=== PATIENT | male | born 1970 | race Native Hawaiian/Other Pacific Islander ===

== ENCOUNTER 2018-05-21 06:54 | Emergency (ER) | payer MEDICARE, MEDICAID ==
--- NOTE | 2018-05-21 07:30 | EDM.PDOC ---
ED HPI GENERAL MEDICAL PROBLEM - General Chief Complaint: General Stated Complaint: WEAKNESS Time Seen by Provider: 05/21/18 07:00 Source of Information: Reports: Patient, EMS History Limitations: Reports: No Limitations - History of Present Illness INITIAL COMMENTS - FREE TEXT/NARRATIVE: 48 years olf hilda m, HIV pos, came to there ed this am due to numbness of his lower face and "body shaking". Pt is seen on a regular basis at the infections disease clinic at [facility]. His last CD4 count was 500 (stable), Pt is compliant with his meds. No trauma. Pt walks daily and drinks a lot of water. As the pt was arriving by EMS, he symptoms were improving. No N/V/D. No Dizziness, last MRI 5 years ago, NEG No other acute medical issues. BP 147/79 RR 18 Pulse ox 99% on RA temp 36.8 Pulse 98 bpm Onset Date: 05/21/18 Onset Time: 08:00 Duration: Hour(s):, Improving Location: Reports: Face Quality: Reports: Other (numb) Severity: Mild Improves with: Reports: None Worsens with: Reports: None Associated Symptoms: Reports: Other (Headache off/on, not new) Treatments [employer]OR: Reports: Acetaminophen - Related Data Allergies Allergy/AdvReac Type Severity Reaction Status Date / Time nut - unspecified Allergy Unknown Other Verified 05/21/18 07:08 Home Meds: Home Meds Cholecalciferol (Vitamin D3) [Vitamin D3] 2,000 unit PO DAILY 05/21/18 [History] Emtricitabine/Tenofovir [Truvada 200 mg-300 mg Tablet] 1 tab PO DAILY 05/21/18 [ History] Loratadine 10 mg PO DAILY 05/21/18 [History] Metoprolol Succinate 12.5 mg PO DAILY 05/21/18 [History] Nevirapine 200 mg PO BID 05/21/18 [History] Omeprazole 40 mg PO ACBREAKFAST 05/21/18 [History] levETIRAcetam [Keppra] 500 mg PO TID 05/21/18 [History] ED ROS GENERAL - Review of Systems Review Of Systems: See Below Constitutional: Reports: No Symptoms HEENT: Reports: No Symptoms Respiratory: Reports: No Symptoms Cardiovascular: Reports: No Symptoms Endocrine: Reports: No Symptoms GI/Abdominal: Reports: No Symptoms : Reports: No Symptoms Musculoskeletal: Reports: No Symptoms Skin: Reports: No Symptoms Neurological: Reports: Paresthesia (lower cheek, reseolving), Tremors (resolving ) Psychiatric: Reports: No Symptoms Hematologic/Lymphatic: Reports: No Symptoms Immunologic: Reports: No Symptoms ED EXAM, GENERAL - Physical Exam Exam: See Below Exam Limited By: No Limitations General Appearance: Alert, WD/WN, Mild Distress Eye Exam: Bilateral Eye: Normal Inspection Nose: Normal Inspection, Normal Mucosa, No Blood Throat/Mouth: Normal Inspection, Normal Lips, Normal Gums, Normal Oropharynx, Normal Voice, No Airway Compromise Head: Atraumatic, Normocephalic Neck: Normal Inspection, Supple, Non-Tender, Full Range of Motion Respiratory/Chest: No Respiratory Distress, Rhonchi Cardiovascular: Normal Peripheral Pulses, Regular Rate, Rhythm, No Edema, No Gallop, No JVD, No Murmur, No Rub Peripheral Pulses: 1+: Brachial (R) GI/Abdominal: Normal Bowel Sounds, Soft, Non-Tender, No Organomegaly, No Distention, No Abnormal Bruit, No Mass, Pelvis Stable (Male) Exam: Deferred Rectal (Males) Exam: Deferred Back Exam: Normal Inspection, Full Range of Motion Extremities: Normal Inspection, Normal Range of Motion, Non-Tender, No Pedal Edema, Normal Capillary Refill Neurological: Alert, Oriented, CN II-XII Intact, Normal Cognition, Normal Gait, Normal Reflexes, No Motor/Sensory Deficits Psychiatric: Normal Affect, Normal Mood Skin Exam: Warm, Dry, Intact, Normal Color, No Rash Lymphatic: No Adenopathy Course - Vital Signs Text/Narrative:: 48 years olf w m, HIV pos, came to there ed this am due to numbness of his lower face and "body shaking". Pt is seen on a regular basis at the infections disease clinic at [facility]. His last CD4 count was 500 (stable), Pt is compliant with his meds. No trauma. Pt walks daily and drinks a lot of water. As the pt was arriving by EMS, he symptoms were improving. No N/V/D. No Dizziness, last MRI 5 years ago, NEG No other acute medical issues. BP 147/79 RR 18 Pulse ox 99% on RA temp 36.8 Pulse 98 bpm PE: WNWD W M in NAD, with facial numbness subsiding Imaging: Pt refused MRI Labs: CBC: WBC 4.2 BMP and LFT and UA were al Nl Impression: H/O HIV infection, numbness (subsiding) H/O Migraine H/A Meds: Motrin Reexam: Pt was in his usual state of health on D/C 9.05 am Consultation: Dr. Izaguirre, Infection Disease MD [place]: CD4 count 3as 500 2 months ago, home if neurological exam is nl. Plan: D/C with instructions Last Recorded V/S: Last Vital Signs Temp 36.8 C 05/21/18 09:30 Pulse 67 05/21/18 09:30 Resp 16 05/21/18 09:30 BP 147/87 H 05/21/18 09:30 Pulse Ox 100 05/21/18 09:30 - Orders/Labs/Meds Orders: Active Orders 24 hr Category Date Time Status UA W/MICROSCOPIC [URIN] Stat Lab 05/21/18 08:50 Ordered Labs: Laboratory Tests 05/21/18 05/21/18 05/21/18 Range/Units 08:06 08:06 08:06 WBC 4.2 L (4.5-12.0) X10-3/uL RBC 4.50 (4.30-5.75) x10(6)uL Hgb 14.9 (11.5-15.5) g/dL Hct 44.4 (30.0-51.3) % MCV 98.7 H (80-96) fL MCH 33.0 (27.7-33.6) pg MCHC 33.5 (32.2-35.4) g/dL RDW 14.9 (11.5-15.5) % Plt Count 342 (125-369) X10(3)uL MPV 6.9 L (7.4-10.4) fL Neut % (Auto) 60.9 (46-82) % Lymph % (Auto) 27.8 (13-37) % [place] % (Auto) 9.5 (4-12) % Eos % (Auto) 1 (1.0-5.0) % Baso % (Auto) 1 (0-2) % Neut # (Auto) 2.6 (1.6-8.3) # Lymph # (Auto) 1.2 (0.6-5.0) # [place] # (Auto) 0.4 (0.0-1.3) # Eos # (Auto) 0.0 (0.0-0.8) # Baso # (Auto) 0.0 (0.0-0.2) # PT 9.5 (8.7-11.1) INR 0.98 (0.89-1.13) Sodium 138 (135-145) mmol/L Potassium 4.0 (3.5-5.3) mmol/L Chloride 102 (100-110) mmol/L Carbon Dioxide 31 (21-32) mmol/L BUN 9 (7-18) mg/dL Creatinine 0.9 (0.70-1.30) mg/dL Est Cr Clr Drug Dosing 85.42 mL/min Estimated GFR (MDRD) > 60 (>60) BUN/Creatinine Ratio 10.0 (9-20) Glucose 101 (80-116) mg/dL Lactic Acid (0.4-2.2) mmol/L Calcium 8.2 L (8.6-10.2) mg/dL Total Bilirubin 0.2 (0.1-1.3) mg/dL Direct Bilirubin 0.07 L (0.10-0.20) mg/dL AST 19 (5-25) IU/L ALT 26 (12-36) U/L Alkaline Phosphatase 70 (56-112) IU/L Total Protein 7.6 (6.0-8.0) g/dL Albumin 3.8 (3.5-5.2) g/dL Amylase 39 (25-115) U/L Urine Color (YELLOW) Urine Appearance (CLEAR) Urine pH (5.0-6.5) Ur Specific [place] (1.010-1.025) Urine Protein (NEGATIVE) mg/dL Urine Glucose (UA) (NEGATIVE) mg/dL Urine Ketones (NEGATIVE) mg/dL Urine Occult Blood (NEGATIVE) Urine Nitrite (NEGATIVE) Urine Bilirubin (NEGATIVE) Urine Urobilinogen (NEGATIVE) mg/dL Ur Leukocyte Esterase (NEGATIVE) Urine RBC (0) Urine WBC (0) Ur Squamous Epith Cells (NS,R,O) Urine Bacteria (NS) 05/21/18 05/21/18 Range/Units 08:06 08:50 WBC (4.5-12.0) X10-3/uL RBC (4.30-5.75) x10(6)uL Hgb (11.5-15.5) g/dL Hct (30.0-51.3) % MCV (80-96) fL MCH (27.7-33.6) pg MCHC (32.2-35.4) g/dL RDW (11.5-15.5) % Plt Count (125-369) X10(3)uL MPV (7.4-10.4) fL Neut % (Auto) (46-82) % Lymph % (Auto) (13-37) % [place] % (Auto) (4-12) % Eos % (Auto) (1.0-5.0) % Baso % (Auto) (0-2) % Neut # (Auto) (1.6-8.3) # Lymph # (Auto) (0.6-5.0) # [place] # (Auto) (0.0-1.3) # Eos # (Auto) (0.0-0.8) # Baso # (Auto) (0.0-0.2) # PT (8.7-11.1) INR (0.89-1.13) Sodium (135-145) mmol/L Potassium (3.5-5.3) mmol/L Chloride (100-110) mmol/L Carbon Dioxide (21-32) mmol/L BUN (7-18) mg/dL Creatinine (0.70-1.30) mg/dL Est Cr Clr Drug Dosing mL/min Estimated GFR (MDRD) (>60) BUN/Creatinine Ratio (9-20) Glucose (80-116) mg/dL Lactic Acid 1.5 (0.4-2.2) mmol/L Calcium (8.6-10.2) mg/dL Total Bilirubin (0.1-1.3) mg/dL Direct Bilirubin (0.10-0.20) mg/dL AST (5-25) IU/L ALT (12-36) U/L Alkaline Phosphatase (56-112) IU/L Total Protein (6.0-8.0) g/dL Albumin (3.5-5.2) g/dL Amylase (25-115) U/L Urine Color Yellow (YELLOW) Urine Appearance Clear (CLEAR) Urine pH 7.0 H (5.0-6.5) Ur Specific [place] 1.010 (1.010-1.025) Urine Protein Negative (NEGATIVE) mg/dL Urine Glucose (UA) Normal (NEGATIVE) mg/dL Urine Ketones Negative (NEGATIVE) mg/dL Urine Occult Blood Negative (NEGATIVE) Urine Nitrite Negative (NEGATIVE) Urine Bilirubin Negative (NEGATIVE) Urine Urobilinogen 1 H (NEGATIVE) mg/dL Ur Leukocyte Esterase Negative (NEGATIVE) Urine RBC Not seen (0) Urine WBC 0-5 (0) Ur Squamous Epith Cells Few H (NS,R,O) Urine Bacteria Not seen (NS) Meds: Medications Discontinued Medications Generic Name Dose Route Start Last Admin Trade Name Freq PRN Reason Stop Dose Admin Ibuprofen 600 mg 05/21/18 07:26 05/21/18 07:33 Motrin PO 05/21/18 07:27 600 mg ONETIME ONE Administration Departure - Departure Time of Disposition: 09:21 Disposition: Home, Self-Care 01 Condition: Good Clinical Impression: Paresthesia, HIV (human immunodeficiency virus infection) - Discharge Information *PRESCRIPTION DRUG MONITORING PROGRAM REVIEWED*: Yes *COPY OF PRESCRIPTION DRUG MONITORING REPORT IN PATIENT SHARON: Yes Referrals: PCP,Not In Area [Primary Care Provider] - Forms: ED Department Discharge Additional Instructions: Please cont your current meds, please f/u with your PMD, come back if your symptoms get worse acutely - My Orders Last 24 Hours: My Active Orders 05/21/18 08:50 UA W/MICROSCOPIC [URIN] Stat - Assessment/Plan Last 24 Hours: My Active Orders 05/21/18 08:50 UA W/MICROSCOPIC [URIN] Stat
[2018-05-21] MEDS: Ibuprofen 600 MG Tab PO ONE (07:33)
[2018-05-21 09:31] VITALS: BP 147/87
--- NOTE | 2018-05-21 13:09 | CR ---
INDICATION: Cough and fever. CHEST: PA and lateral views of the chest were obtained 05/21/2018 - no comparisons. The heart is normal in size and shape. The mediastinum and bony thorax were essentially unremarkable. An active infiltrate or effusion was not identified. IMPRESSION: No active disease. MTDD
== END 2018-05-21 09:29 | disposition home or self-care (01) ==
LOC: FB.ED 06:54
DX: R20.2 Paresthesia of skin (principal); B20 Human immunodeficiency virus [HIV] disease; Z91.018 Allergy to other foods
CPT/HCPCS: 36415; 71046; 80048; 80076; 81001; 82150; 83605; 85025; 85610; 99284; A9270

== ENCOUNTER 2024-05-28 16:19 | Emergency (ER) | payer OTHER ==
[2024-05-28 16:49] VITALS: BP 148/100; PULSE 108
[2024-05-28 17:54] LABS: BASOPHILS PERCENT AUTO 0.5 % (0.3-3.8); EOSINOPHILS PERCENT AUTO 0.3 % (0.1-6.8); HEMOGLOBIN 13.7 g/dL (12.9-17.7); LYMPHOCYTES ABSOLUTE AUTO 1.6 x10-3/uL (0.5-4.5); LYMPHOCYTES PERCENT AUTO 40.9 % (15.8-45.3); MEAN CORPUSCULAR HEMOGLOBIN 31.6 pg (27.0-33.3); MEAN CORPUSCULAR HGB CONC 33.5 g/dL (28.7-35.3); MEAN CORPUSCULAR VOLUME 94.2 fL (80.8-98.7); MONOCYTES ABSOLUTE AUTO 0.4 x10-3/uL (0.0-1.2); MONOCYTES PERCENT AUTO 10.7 % (5.5-15.2); NEUTROPHILS ABSOLUTE AUTO 1.9 x10-3/uL (1.7-6.9); NEUTROPHILS PERCENT AUTO 47.6 % (40.3-71.8); PLATELET COUNT,PLT 153 x10(3)uL (117-477); RED BLOOD CELL COUNT 4.36 x10(6)uL (3.90-5.90); RED CELL DISTRIBUTION WIDTH 16.3 % (12.4-15.0)
[2024-05-28 17:57] LABS: CALCIUM 8.7 mg/dL (8.6-10.2); CARBON DIOXIDE,CO2 26 mmol/L (21-32); CHLORIDE,CL 95 mmol/L (100-110); CREATININE 0.8 mg/dL (0.70-1.30); EST CRCL DRUG DOSING (CG) 86.33 mL/min; ESTIMATED GFR 104 mL/min (>60); GLUCOSE RANDOM 119 mg/dL (80-116); POTASSIUM,K 3.9 mmol/L (3.5-5.3); SODIUM,NA 134 mmol/L (135-145)
[2024-05-28 18:03] LABS: A/G RATIO 0.9; ALANINE AMINOTRANSFERASE,ALT 83 U/L (12-36); ALBUMIN 3.8 g/dL (3.5-5.2); ALKALINE PHOSPHATASE 49 IU/L (56-112); ASPARTATE AMNIOTRANSFERASE,AST 100 IU/L (5-25); BILIRUBIN TOTAL 1.1 mg/dL (0.1-1.3); PROTEIN TOTAL,TP 7.9 g/dL (6.0-8.0)
[2024-05-28 18:04] LABS: BLOOD UREA NITROGEN,BUN < 5 mg/dL (7-18); BUN/CREATININE RATIO 6.3 (9-20)
[2024-05-28 18:05] LABS: TROPONIN I 5.4 pg/mL (4.0-60.3)
[2024-05-28 18:06] LABS: C-REACTIVE PROTEIN < 0.50 mg/dL (<0.50); ETHANOL BLOOD MEDICAL 0.37 % (<0.03)
== END 2024-05-28 18:14 | disposition left against medical advice (07) ==
LOC: FB.ED 16:19
DX: S01.01XA Laceration without foreign body of scalp, initial encounter (principal); R55 Syncope and collapse; F10.129 Alcohol abuse with intoxication, unspecified; Z21 Asymptomatic human immunodeficiency virus [HIV] infection status; Z79.899 Other long term (current) drug therapy; Z91.018 Allergy to other foods; W19.XXXA Unspecified fall, initial encounter
CPT/HCPCS: 12002; 36415; 70450; 80053; 80307; 84484; 85025; 85379; 86140; 93005; 99285